=== PATIENT | male | born 1980 | race Caucasian/White ===

== ENCOUNTER 2018-05-04 16:56 | Emergency (ER) | payer BC ==
[~2018-05-04] VITALS: Ht 177.8 cm; Wt 133.0 kg
[2018-05-04] MEDS ORDERED: MORPHINE SULFATE 4 MG/ML CPJ (NOT FOR IM USE) IV ONE (17:30)
[2018-05-04] MEDS ORDERED: AMOXICILLIN/POTASSIUM CLAVULANATE 875/125MG TAB PO ONE (17:30)
[2018-05-04] MEDS ORDERED: ONDANSETRON HCL 4MG/2ML INJ IV ONE (17:30)
[2018-05-04] MEDS ORDERED: KETOROLAC 60MG/2ML VIAL IM ONE (17:30)
[2018-05-04] MEDS ORDERED: DEXAMETHASONE 10 MG/ML VIAL IM ONE (17:30)
[2018-05-04] MEDS ORDERED: SODIUM CHLORIDE 0.9% 1,000 ML IV ONE (17:30)
[2018-05-04] MEDS ORDERED: LIDOCAINE HCL/EPINEPHRINE 1%-EPI 1:100,000 50 ML VIAL INFIL ONE (17:45)
[2018-05-04] MEDS: TETRACAINE/BENZOCAINE/BUTAMBEN 20 GM SPRAY MM NR ×2 (18:30→19:14)
[2018-05-04 22:07] VITALS: BP 144/90
== END 2018-05-04 22:15 | disposition home or self-care (01) ==
LOC: ER 17:40
DX: J36 Peritonsillar abscess (principal); R03.0 Elevated blood-pressure reading, without diagnosis of hypertension; R00.0 Tachycardia, unspecified
CPT/HCPCS: 82962; 96372; 96374; 96375; 99284; J1100; J1885; J2270; J2405; J3490; J7030

== ENCOUNTER 2021-01-11 17:27 | Emergency (ER) | payer SELFPAY ==
[~2021-01-11] VITALS: Ht 180.3 cm; Wt 100.0 kg
[~2021-01-11 17:27] MED LIST: LISI20TA31 PO; METF-416 PO
[2021-01-11 22:46] LABS: BASOPHILS % 0.3 % (0.0-2.0); EOSINOPHILS % 0.8 % (0.0-5.0); HEMATOCRIT. 41.6 % (42.0-52.0); HEMOGLOBIN. 14.4 g/dL (14.0-18.0); LYMPHOCYTES % 30.7 % (20.0-50.0); MEAN CORPUSCULAR HEMOGLOBIN 30.1 pg (28.0-32.0); MEAN PLATELET VOLUME 7.8 fl (7.4-10.4); MONOCYTES % 7.4 % (2.0-8.0); NEUTROPHILS % 60.8 % (40.0-76.0); PLATELET 191 x1000/uL (130-400); RED BLOOD CELL COUNT 4.78 mill/uL (4.7-6.1); RED CELL DISTRIBUTION WIDTH 13.2 % (11.6-14.6)
[2021-01-11 22:53] LABS: CHLORIDE 107 mEq/L (98-107)
[2021-01-12 01:00] VITALS: BP 129/79
== END 2021-01-12 01:25 | disposition home or self-care (01) ==
LOC: ER 17:31
DX: R07.89 Other chest pain (principal); R05 Cough; F41.9 Anxiety disorder, unspecified; I10 Essential (primary) hypertension
CPT/HCPCS: 36415; 71045; 80053; 84484; 85025; 93005; 99285

== ENCOUNTER 2021-02-25 18:40 | Emergency (ER) | payer BC ==
[~2021-02-25] VITALS: Ht 180.3 cm; Wt 95.0 kg
[~2021-02-25 18:40] MED LIST changes: +AMOX-424 MT
[2021-02-25] MEDS ORDERED: KETOROLAC 30MG/ML VIAL IV STA (23:38)
[2021-02-25] MEDS ORDERED: SODIUM CHLORIDE 0.9% 1,000 ML IV ONE (23:45)
[2021-02-26 00:19] LABS: BASOPHILS % 0.5 % (0.0-2.0); EOSINOPHILS % 1.8 % (0.0-5.0); HEMATOCRIT. 40.1 % (42.0-52.0); HEMOGLOBIN. 13.8 g/dL (14.0-18.0); LYMPHOCYTES % 49.1 % (20.0-50.0); MEAN CORPUSCULAR HEMOGLOBIN 29.9 pg (28.0-32.0); MEAN CORPUSCULAR VOLUME 87.1 fL (80.0-94.0); MONOCYTES % 9.4 % (2.0-8.0); NEUTROPHILS % 39.2 % (40.0-76.0); PLATELET 146 x1000/uL (130-400); RED BLOOD CELL COUNT 4.61 mill/uL (4.7-6.1); RED CELL DISTRIBUTION WIDTH 13.6 % (11.6-14.6)
[2021-02-26 00:25] LABS: CHLORIDE 107 mEq/L (98-107)
[2021-02-26 02:16] LABS: CLARITY URINE CLEAR (CLEAR); COLOR URINE YELLOW (YELLOW); KETONES URINE 1+ (NEGATIVE); LEUKOCYTE ESTERASE URINE NEGATIVE (NEGATIVE); NITRITE URINE NEGATIVE (NEGATIVE); OCCULT BLOOD URINE NEGATIVE (NEGATIVE); PH URINE 6.5 (4.5-8.0); PROTEIN URINE NEGATIVE (NEGATIVE); SPECIFIC GRAVITY URINE 1.019 (1.005-1.030); UROBILINOGEN URINE 0.2 E.U./dL (0.2-1.0)
[2021-02-26] MEDS ORDERED: IBUP-2029 MT (04:08)
[2021-02-26] MEDS ORDERED: DOCU-138 MT (04:08)
[2021-02-26 04:20] VITALS: BP 148/91
== END 2021-02-26 04:22 | disposition home or self-care (01) ==
LOC: ER 18:40
DX: R10.9 Unspecified abdominal pain (principal); F41.9 Anxiety disorder, unspecified; E11.9 Type 2 diabetes mellitus without complications; I10 Essential (primary) hypertension
CPT/HCPCS: 36415; 74177; 80053; 81003; 83605; 83690; 85025; 93005; 96361; 96374; 99285; J1885; J7030

== ENCOUNTER 2021-09-05 03:26 | Emergency (ER) | payer BC ==
[~2021-09-05] VITALS: Ht 180.3 cm; Wt 98.0 kg
[~2021-09-05 03:26] MED LIST changes: +DOCU-138 MT; +IBUP-2029 MT
[2021-09-05] MEDS ORDERED: ONDANSETRON 4MG ODT PO STA (03:36)
[2021-09-05] MEDS ORDERED: MAGNESIUM/ALUMINUM HYDROXIDE/SIMETHICONE 30ML UDC PO ONE (03:45)
[2021-09-05] MEDS ORDERED: FAMOTIDINE 20MG TABLET PO ONE (03:45)
[2021-09-05 04:41] LABS: BASOPHILS % 0.2 % (0.0-2.0); EOSINOPHILS % 0.7 % (0.0-5.0); HEMATOCRIT. 44.6 % (42.0-52.0); LYMPHOCYTES % 10.4 % (20.0-50.0); MEAN CORPUSCULAR HEMOGLOBIN 29.4 pg (28.0-32.0); MEAN CORPUSCULAR VOLUME 87.3 fL (80.0-94.0); MEAN PLATELET VOLUME 7.6 fl (7.4-10.4); MONOCYTES % 5.9 % (2.0-8.0); NEUTROPHILS % 82.8 % (40.0-76.0); PLATELET 195 x1000/uL (130-400); RED BLOOD CELL COUNT 5.11 mill/uL (4.7-6.1)
[2021-09-05 04:45] LABS: CHLORIDE 106 mEq/L (98-107); CLARITY URINE CLEAR (CLEAR); COLOR URINE YELLOW (YELLOW); KETONES URINE NEGATIVE (NEGATIVE); LEUKOCYTE ESTERASE URINE NEGATIVE (NEGATIVE); NITRITE URINE NEGATIVE (NEGATIVE); OCCULT BLOOD URINE NEGATIVE (NEGATIVE); PROTEIN URINE NEGATIVE (NEGATIVE); SPECIFIC GRAVITY URINE 1.026 (1.005-1.030); UROBILINOGEN URINE 0.2 E.U./dL (0.2-1.0)
[2021-09-05] MEDS ORDERED: SODIUM CHLORIDE 0.9% 1,000 ML IV ONE (05:00)
[2021-09-05] MEDS ORDERED: FAMO-135 MT (05:41)
[2021-09-05 07:05] VITALS: BP 123/75
== END 2021-09-05 07:09 | disposition home or self-care (01) ==
LOC: ER 03:26
DX: R10.13 Epigastric pain (principal); I10 Essential (primary) hypertension; E11.9 Type 2 diabetes mellitus without complications; Z91.14 Patient's other noncompliance with medication regimen
CPT/HCPCS: 36415; 74176; 80053; 81003; 83690; 85025; 99284; J7030; Q0162

== ENCOUNTER 2022-03-24 19:09 | Emergency (ER) | payer SELFPAY ==
[~2022-03-24] VITALS: Ht 177.8 cm; Wt 104.0 kg
[~2022-03-24 19:09] MED LIST changes: +FAMO-135 MT
[2022-03-24 19:19] VITALS: BP 155/108
[2022-03-24] MEDS ORDERED: IBUPROFEN 400MG TABLET PO ONE (21:15)
[2022-03-24 23:05] LABS: CHLORIDE 104 mEq/L (98-107)
[2022-03-24] MEDS ORDERED: LIDO700A30 TP (23:33)
[2022-03-24] MEDS ORDERED: IBUP-2028 MT (23:33)
== END 2022-03-24 23:43 | disposition home or self-care (01) ==
LOC: ER 19:09
DX: M54.9 Dorsalgia, unspecified (principal); I10 Essential (primary) hypertension
CPT/HCPCS: 36415; 80048; 99283

== ENCOUNTER 2022-03-27 15:02 | Emergency (ER) | payer MEDICAID ==
[~2022-03-27] VITALS: Ht 175.3 cm; Wt 89.0 kg
[~2022-03-27 15:02] MED LIST changes: +IBUP-2028 MT; +LIDO700A30 TP
[2022-03-27 16:31] LABS: BASOPHILS % 0.3 % (0.0-2.0); EOSINOPHILS % 0.3 % (0.0-5.0); HEMATOCRIT. 44.4 % (42.0-52.0); HEMOGLOBIN. 15.1 g/dL (14.0-18.0); LYMPHOCYTES % 21.3 % (20.0-50.0); MEAN CORPUSCULAR HEMOGLOBIN 30.3 pg (28.0-32.0); MEAN CORPUSCULAR VOLUME 88.8 fL (80.0-94.0); MEAN PLATELET VOLUME 7.1 fl (7.4-10.4); MONOCYTES % 6.5 % (2.0-8.0); NEUTROPHILS % 71.6 % (40.0-76.0); PLATELET 203 x1000/uL (130-400)
[2022-03-27 16:35] LABS: CHLORIDE 104 mEq/L (98-107)
[2022-03-27 16:44] LABS: PROTHROMBIN TIME 10.9 sec (9.6-11.0)
[2022-03-27 16:46] LABS: ETHANOL BLOOD < 10 mg/dL
[2022-03-27 16:50] LABS: CLARITY URINE CLEAR (CLEAR); COLOR URINE YELLOW (YELLOW); KETONES URINE 1+ (NEGATIVE); LEUKOCYTE ESTERASE URINE NEGATIVE (NEGATIVE); NITRITE URINE NEGATIVE (NEGATIVE); OCCULT BLOOD URINE NEGATIVE (NEGATIVE); PH URINE 5.5 (4.5-8.0); PROTEIN URINE TRACE (NEGATIVE); SPECIFIC GRAVITY URINE 1.027 (1.005-1.030)
[2022-03-27 17:01] LABS: *AMPHETAMINES SCREEN URINE NEGATIVE (NEGATIVE); *BARBITURATES SCREEN URINE NEGATIVE (NEGATIVE); *BENZODIAZEPINES SCREEN URINE NEGATIVE (NEGATIVE); *COCAINE SCREEN URINE NEGATIVE (NEGATIVE); CANNABINOID URINE SCREEN NEGATIVE (NEGATIVE); METHADONE URINE SCREEN NEGATIVE (NEGATIVE); OPIATES URINE SCREEN NEGATIVE (NEGATIVE); PHENCYCLIDINE URINE SCREEN NEGATIVE (NEGATIVE)
[2022-03-27] MEDS ORDERED: KETOROLAC 15MG/ML VIAL IV NR (18:00)
[2022-03-27] MEDS ORDERED: IBUP-2029 MT (18:10)
[2022-03-27] MEDS ORDERED: IBUPROFEN 600MG TABLET PO ONE (18:15)
[2022-03-27] MEDS ORDERED: LISINOPRIL 20MG TABLET PO ONE (18:15)
[2022-03-27 19:40] VITALS: BP 159/92
== END 2022-03-27 19:46 | disposition home or self-care (01) ==
LOC: ER 15:02 → EDBEDREQ 16:48 → EDBEDREQTM 19:41 → EDBEDREQ 19:41 → ER 19:46 → CANBEDREQ 20:00
DX: R07.89 Other chest pain (principal); I10 Essential (primary) hypertension; E11.9 Type 2 diabetes mellitus without complications; Z79.899 Other long term (current) drug therapy
CPT/HCPCS: 36415; 71045; 76705; 80053; 80305; 80320; 81003; 83880; 84484; 85025; 99285; G0480

== ENCOUNTER 2022-11-18 13:11 | Emergency (ER) | payer MEDICAID ==
[~2022-11-18] VITALS: Ht 177.8 cm; Wt 107.0 kg
[2022-11-18] MEDS ORDERED: ACETAMINOPHEN 325MG TABLET PO STA (13:41)
[2022-11-18] MEDS ORDERED: SODIUM CHLORIDE 0.9% 1,000 ML IV ONE (13:45)
[2022-11-18] MEDS ORDERED: METOCLOPRAMIDE HCL 10MG/2ML VIAL IV ONE (13:45)
[2022-11-18] MEDS ORDERED: DIPHENHYDRAMINE 50MG/ML VIAL IV ONE (13:45)
[2022-11-18 14:13] LABS: BASOPHILS % 0.3 % (0.0-2.0); EOSINOPHILS % 1.1 % (0.0-5.0); HEMATOCRIT. 44.4 % (42.0-52.0); HEMOGLOBIN. 15.3 g/dL (14.0-18.0); LYMPHOCYTES % 28.2 % (20.0-50.0); MEAN CORPUSCULAR HEMOGLOBIN 30.3 pg (28.0-32.0); MEAN CORPUSCULAR VOLUME 87.8 fL (80.0-94.0); MEAN PLATELET VOLUME 7.3 fl (7.4-10.4); MONOCYTES % 8.1 % (2.0-8.0); NEUTROPHILS % 62.3 % (40.0-76.0); PLATELET 211 x1000/uL (130-400); RED BLOOD CELL COUNT 5.05 mill/uL (4.7-6.1)
[2022-11-18 14:21] LABS: PROTHROMBIN TIME 11.1 sec (9.6-11.0)
[2022-11-18 14:25] LABS: CHLORIDE 106 mEq/L (98-107)
[2022-11-18] MEDS ORDERED: ACET-2708 MT (15:15)
[2022-11-18] MEDS ORDERED: METO-293 MT (15:15)
[2022-11-18 17:03] VITALS: BP 151/106
== END 2022-11-18 17:06 | disposition home or self-care (01) ==
LOC: ER 13:11
DX: G44.209 Tension-type headache, unspecified, not intractable (principal); I10 Essential (primary) hypertension; E11.9 Type 2 diabetes mellitus without complications; Z79.84 Long term (current) use of oral hypoglycemic drugs; Z79.899 Other long term (current) drug therapy
CPT/HCPCS: 36415; 70450; 80053; 82962; 85025; 85610; 96361; 96374; 96375; 99285; J1200; J2765; J7030; Z7610

== ENCOUNTER 2023-02-25 10:31 | Emergency (ER) | payer SELFPAY ==
[~2023-02-25] VITALS: Ht 177.8 cm; Wt 118.0 kg
[~2023-02-25 10:31] MED LIST changes: +ACET-2708 MT; +METO-293 MT
[2023-02-25 10:55] VITALS: O2SAT 96
[2023-02-25 12:09] LABS: BASOPHILS % 0.3 % (0.0-2.0); EOSINOPHILS % 0.6 % (0.0-5.0); HEMATOCRIT. 45.1 % (42.0-52.0); HEMOGLOBIN. 15.8 g/dL (14.0-18.0); LYMPHOCYTES % 22.7 % (20.0-50.0); MEAN CORPUSCULAR HEMOGLOBIN 30.3 pg (28.0-32.0); MEAN CORPUSCULAR VOLUME 86.6 fL (80.0-94.0); MEAN PLATELET VOLUME 7.2 fl (7.4-10.4); MONOCYTES % 8.1 % (2.0-8.0); NEUTROPHILS % 68.3 % (40.0-76.0); PLATELET 216 x1000/uL (130-400); RED BLOOD CELL COUNT 5.22 mill/uL (4.7-6.1); RED CELL DISTRIBUTION WIDTH 13.9 % (11.6-14.6); WHITE BLOOD COUNT 7.4 x1000/uL (4.5-11.0)
[2023-02-25 12:15] LABS: CLARITY URINE CLEAR (CLEAR); COLOR URINE YELLOW (YELLOW); GLUCOSE URINE NEGATIVE (NEGATIVE); KETONES URINE NEGATIVE (NEGATIVE); LEUKOCYTE ESTERASE URINE NEGATIVE (NEGATIVE); NITRITE URINE NEGATIVE (NEGATIVE); OCCULT BLOOD URINE NEGATIVE (NEGATIVE); PH URINE 6.5 (4.5-8.0); PROTEIN URINE TRACE (NEGATIVE); SPECIFIC GRAVITY URINE 1.022 (1.005-1.030); UROBILINOGEN URINE 0.2 E.U./dL (0.2-1.0)
[2023-02-25 12:18] LABS: BACTERIA URINE NONE SEEN; RBC URINE NONE SEEN /hpf (0-2); WBC URINE NONE SEEN /hpf (0-2); YEAST URINE NONE SEEN
[2023-02-25 12:18] LABS: CHLORIDE 106 mEq/L (98-107); INDEX HEMOLYSI 1 (1-3); INDEX ICTERIC 1 (1-4); INDEX LIPEMIC 1 (1-3); POTASSIUM 3.4 mEq/L (3.5-5.1); SODIUM 135 mEq/L (136-145)
[2023-02-25 12:25] LABS: ALANINE AMINOTRANSFERASE 46 IU/L (13-61); ALBUMIN 4.1 g/dL (3.4-5.0); ASPARTATE AMINOTRANSFERASE 28 IU/L (15-37); BILIRUBIN TOTAL 0.6 mg/dL (0.1-1.0); CALCIUM 8.9 mg/dL (8.5-10.1); CARBON DIOXIDE 29 mEq/L (21-32); CREATININE 0.8 mg/dL (0.6-1.3); GLUCOSE 115 mg/dL (70-105); PROTEIN TOTAL 8.5 g/dL (6.0-8.3); UREA NITROGEN BLOOD 13 mg/dL (7-21)
[2023-02-25 12:41] LABS: SQUAMOUS EPITHELIAL CELL URINE RARE /lpf (RARE/1+)
[2023-02-25 13:36] VITALS: BP 152/98; PULSE 88; RESP 18; TEMP 98.7
== END 2023-02-25 13:38 | disposition home or self-care (01) ==
LOC: ER 10:31
DX: R10.9 Unspecified abdominal pain (principal); M79.10 Myalgia, unspecified site; N20.0 Calculus of kidney; E11.9 Type 2 diabetes mellitus without complications; I10 Essential (primary) hypertension; Z79.899 Other long term (current) drug therapy
CPT/HCPCS: 80053; 81003; 85025; 36415; 74176; 99284; Z7610

== ENCOUNTER 2023-11-15 03:53 | Emergency (ER) | payer SELFPAY ==
[~2023-11-15] VITALS: Ht 180.3 cm; Wt 127.0 kg
[2023-11-15 04:03] VITALS: O2SAT 94
[2023-11-15 06:20] LABS: BASOPHILS % 0.5 % (0.0-2.0); HEMATOCRIT. 46.5 % (42.0-52.0); HEMOGLOBIN. 15.8 g/dL (14.0-18.0); MEAN CORPUSCULAR HEMOGLOBIN 29.9 pg (28.0-32.0); MEAN CORPUSCULAR HGB CONC 33.9 g/dL (31.0-37.0); MEAN CORPUSCULAR VOLUME 88.4 fL (80.0-94.0); MEAN PLATELET VOLUME 7.8 fl (7.4-10.4); MONOCYTES % 7.8 % (2.0-8.0); NEUTROPHILS % 65.7 % (40.0-76.0); PLATELET 211 x1000/uL (130-400); RED BLOOD CELL COUNT 5.26 mill/uL (4.7-6.1); RED CELL DISTRIBUTION WIDTH 13.9 % (11.6-14.6)
[2023-11-15 06:25] LABS: BG BASE EXCESS 1.2 mmol/L (-2.0-2.0); BG CARBOXYHEMOGLOBIN 0.6 % (0.5-1.5); BG DEOXYHEMOGLOBIN 6.6 % (0.0-5.0); BG HCO3 ACT 25.3 mmol/L (22.0-26.0); BG METHEMOGLOBIN 0.5 % (0.0-1.5); BG OXYGEN SATURATION 93.3 % (92.0-98.5); BG OXYHEMOGLOBIN 92.3 % (94.0-97.0); BG PCO2 38.8 mmHg (35.0-45.0); BG PH 7.432 (7.350-7.450); BG PO2 65.6 mmHg (75.0-100.0); BG SAMPLE SITE RIGHT RADIAL; BG TOTAL HEMOGLOBIN 17.1 g/dL (12.0-18.0); BG VENT MODE ROOM AIR
[2023-11-15 06:26] LABS: CHLORIDE 102 mEq/L (98-107); POTASSIUM 3.8 mEq/L (3.5-5.1); SODIUM 137 mEq/L (136-145)
[2023-11-15 06:27] LABS: CARBON DIOXIDE 28 mEq/L (21-32)
[2023-11-15 06:32] LABS: GLUCOSE 247 mg/dL (70-105); UREA NITROGEN BLOOD 12 mg/dL (9-23)
[2023-11-15 06:33] LABS: TROPONIN I HIGH SENSITIVITY 7 ng/L (3.0-53)
[2023-11-15 06:34] LABS: ALANINE AMINOTRANSFERASE 55 IU/L (10-49); ALBUMIN 4.7 g/dL (3.2-4.8); ASPARTATE AMINOTRANSFERASE 37 IU/L (<34)
[2023-11-15 06:35] LABS: BILIRUBIN TOTAL 0.7 mg/dL (0.1-1.0)
[2023-11-15 06:36] LABS: BETA HYDROXYBUTYRATE 0.1 mMol/L (0.0-0.3)
[2023-11-15] MEDS: SODIUM CHLORIDE 0.9% 1,000 ML IV ONE (06:39)
[2023-11-15 07:09] VITALS: BP 175/115; PULSE 97; RESP 15; TEMP 98.2
[2023-11-15] MEDS ORDERED: METF-414 MT (09:03)
== END 2023-11-15 07:13 | disposition home or self-care (01) ==
LOC: ER 03:53
DX: E11.65 Type 2 diabetes mellitus with hyperglycemia (principal)
CPT/HCPCS: 99285; 96360; 71045; 80053; 82010; 82962; 85025; 84484; 36415; 82805; 82375; 93005; 36600; J7030

== ENCOUNTER 2023-11-15 08:21 | Emergency (ER) | payer SELFPAY ==
[~2023-11-15] VITALS: Ht 177.8 cm; Wt 127.0 kg
[2023-11-15 08:23] VITALS: BP 168/108; PULSE 98; RESP 18; TEMP 98.6; O2SAT 100
[2023-11-15] MEDS ORDERED: METF-414 MT (09:03)
== END 2023-11-15 09:23 | disposition home or self-care (01) ==
LOC: ER 08:21
DX: E11.65 Type 2 diabetes mellitus with hyperglycemia (principal)
CPT/HCPCS: 99281

== ENCOUNTER 2023-11-15 16:43 | Emergency (ER) | payer SELFPAY ==
[~2023-11-15] VITALS: Ht 180.3 cm; Wt 127.0 kg
[~2023-11-15 16:43] MED LIST changes: +METF-414 MT
[2023-11-15 16:48] VITALS: O2SAT 100
[2023-11-15 18:15] VITALS: BP 148/108; PULSE 94; RESP 20; TEMP 98.6
== END 2023-11-15 18:23 | disposition home or self-care (01) ==
LOC: ER 16:43
DX: E11.65 Type 2 diabetes mellitus with hyperglycemia (principal); Z79.899 Other long term (current) drug therapy
CPT/HCPCS: 82962; 99281; 99282

== ENCOUNTER 2024-01-07 00:25 | Emergency (ER) | payer SELFPAY ==
[~2024-01-07] VITALS: Ht 177.8 cm; Wt 113.0 kg
[2024-01-07 00:36] VITALS: BP 138/95; RESP 18; TEMP 97.9; O2SAT 100
[2024-01-07 00:41] VITALS: PULSE 99
[2024-01-07 01:03] LABS: BASOPHILS % 0.3 % (0.0-2.0); EOSINOPHILS % 0.9 % (0.0-5.0); HEMATOCRIT. 42.7 % (42.0-52.0); HEMOGLOBIN. 14.3 g/dL (14.0-18.0); LYMPHOCYTES % 24.3 % (20.0-50.0); MEAN CORPUSCULAR HEMOGLOBIN 29.6 pg (28.0-32.0); MEAN CORPUSCULAR HGB CONC 33.6 g/dL (31.0-37.0); MEAN CORPUSCULAR VOLUME 88.3 fL (80.0-94.0); MEAN PLATELET VOLUME 7.6 fl (7.4-10.4); MONOCYTES % 9.9 % (2.0-8.0); NEUTROPHILS % 64.6 % (40.0-76.0); PLATELET 205 x1000/uL (130-400); RED BLOOD CELL COUNT 4.84 mill/uL (4.7-6.1); WHITE BLOOD COUNT 10.2 x1000/uL (4.5-11.0)
[2024-01-07 01:12] LABS: CHLORIDE 104 mEq/L (98-107); POTASSIUM 3.8 mEq/L (3.5-5.1); SODIUM 139 mEq/L (136-145)
[2024-01-07 01:13] LABS: CALCIUM 9.8 mg/dL (8.7-10.4); CARBON DIOXIDE 27 mEq/L (21-32)
[2024-01-07 01:18] LABS: CREATININE 0.8 mg/dL (0.6-1.3); GLUCOSE 91 mg/dL (70-105); UREA NITROGEN BLOOD 11 mg/dL (9-23)
[2024-01-07 01:19] LABS: ALANINE AMINOTRANSFERASE 21 IU/L (10-49)
[2024-01-07 01:20] LABS: ALBUMIN 4.9 g/dL (3.2-4.8); ASPARTATE AMINOTRANSFERASE 23 IU/L (<34); BILIRUBIN DIRECT 0.5 mg/dL (<=3.0); BILIRUBIN TOTAL 1.1 mg/dL (0.1-1.0); PROTEIN TOTAL 7.8 g/dL (6.0-8.3)
[2024-01-07] MEDS: KETOROLAC 30MG/ML VIAL IM ONE (08:12)
[2024-01-07] MEDS ORDERED: AMOX1TAB16 MT (09:08)
[2024-01-07] MEDS ORDERED: METR-167 MT (09:08)
[2024-01-07 09:10] LABS: CLARITY URINE CLEAR (CLEAR); COLOR URINE YELLOW (YELLOW); GLUCOSE URINE NEGATIVE (NEGATIVE); KETONES URINE 3+ (NEGATIVE); LEUKOCYTE ESTERASE URINE NEGATIVE (NEGATIVE); NITRITE URINE NEGATIVE (NEGATIVE); OCCULT BLOOD URINE NEGATIVE (NEGATIVE); PH URINE 5.5 (4.5-8.0); PROTEIN URINE NEGATIVE (NEGATIVE); SPECIFIC GRAVITY URINE 1.011 (1.005-1.030); UROBILINOGEN URINE 0.2 E.U./dL (0.2-1.0)
== END 2024-01-07 09:16 | disposition home or self-care (01) ==
LOC: ER 00:25
DX: K57.92 Diverticulitis of intestine, part unspecified, without perforation or abscess without bleeding (principal); E11.9 Type 2 diabetes mellitus without complications; I10 Essential (primary) hypertension; Z79.899 Other long term (current) drug therapy
CPT/HCPCS: 99285; 74176; 80053; 81003; 85025; 36415; 96372; 80076; J1885

== ENCOUNTER 2024-11-24 16:22 | Emergency (ER) | payer SELFPAY ==
[~2024-11-24] VITALS: Ht 180.3 cm; Wt 118.0 kg
[~2024-11-24 16:22] MED LIST changes: +AMOX1TAB16 MT; +METR-167 MT
[2024-11-24 16:36] VITALS: O2SAT 100
[2024-11-24 17:12] LABS: BASOPHILS % 0.3 % (0.0-2.0); EOSINOPHILS % 0.8 % (0.0-5.0); HEMATOCRIT. 44.7 % (42.0-52.0); HEMOGLOBIN. 15.1 g/dL (14.0-18.0); LYMPHOCYTES % 32.5 % (20.0-50.0); MEAN CORPUSCULAR HEMOGLOBIN 29.3 pg (28.0-32.0); MEAN CORPUSCULAR HGB CONC 33.8 g/dL (31.0-37.0); MEAN CORPUSCULAR VOLUME 86.6 fL (80.0-94.0); MEAN PLATELET VOLUME 7.3 fl (7.4-10.4); MONOCYTES % 7.8 % (2.0-8.0); NEUTROPHILS % 58.6 % (40.0-76.0); PLATELET 233 x1000/uL (130-400); RED BLOOD CELL COUNT 5.16 mill/uL (4.7-6.1); RED CELL DISTRIBUTION WIDTH 13.7 % (11.6-14.6); WHITE BLOOD COUNT 9.1 x1000/uL (4.5-11.0)
[2024-11-24 17:20] LABS: CHLORIDE 102 mEq/L (98-107); POTASSIUM 3.3 mEq/L (3.5-5.1); SODIUM 143 mEq/L (136-145)
[2024-11-24 17:21] LABS: CALCIUM 9.6 mg/dL (8.7-10.4); CARBON DIOXIDE 31 mEq/L (21-32)
[2024-11-24 17:26] LABS: CREATININE 1.1 mg/dL (0.6-1.3); GLUCOSE 114 mg/dL (70-105); UREA NITROGEN BLOOD 17 mg/dL (9-23)
[2024-11-24 17:38] LABS: PROTHROMBIN TIME 10.7 sec (9.6-11.0)
[2024-11-24 20:20] LABS: CLARITY URINE CLEAR (CLEAR); COLOR URINE YELLOW (YELLOW); GLUCOSE URINE NEGATIVE (NEGATIVE); KETONES URINE 2+ (NEGATIVE); LEUKOCYTE ESTERASE URINE NEGATIVE (NEGATIVE); NITRITE URINE NEGATIVE (NEGATIVE); OCCULT BLOOD URINE NEGATIVE (NEGATIVE); PH URINE 6.5 (4.5-8.0); PROTEIN URINE NEGATIVE (NEGATIVE); SPECIFIC GRAVITY URINE 1.018 (1.005-1.030)
[2024-11-24] MEDS: PANTOPRAZOLE 40MG DR TABLET PO ONE (20:30)
[2024-11-24] MEDS: MAGNESIUM/ALUMINUM HYDROXIDE/SIMETHICONE 30ML UDC PO STA (20:30)
[2024-11-24] MEDS: POTASSIUM CHLORIDE 20MEQ/PACKET PO ONE (20:31)
[2024-11-24 20:43] LABS: ALANINE AMINOTRANSFERASE 27 IU/L (10-49); ALBUMIN 4.8 g/dL (3.2-4.8); ASPARTATE AMINOTRANSFERASE 29 IU/L (<34); BILIRUBIN DIRECT 0.2 mg/dL (<=3.0); BILIRUBIN TOTAL 0.6 mg/dL (0.1-1.0)
[2024-11-24] MEDS: VISCOUS LIDOCAINE 2% 15 ML UDC PO STA (20:49)
[2024-11-24] MEDS ORDERED: TOPUD PO (21:20)
[2024-11-24] MEDS ORDERED: OMEP40CA20 MT (21:20)
[2024-11-24] MEDS ORDERED: MAG-55 MT (21:20)
[2024-11-24 21:33] VITALS: BP 140/98; PULSE 81; RESP 19; TEMP 36.7; O2SAT 100
== END 2024-11-24 21:55 | disposition home or self-care (01) ==
LOC: ER 16:22
DX: K29.70 Gastritis, unspecified, without bleeding (principal); E11.9 Type 2 diabetes mellitus without complications; E78.00 Pure hypercholesterolemia, unspecified; I10 Essential (primary) hypertension; Z79.899 Other long term (current) drug therapy
CPT/HCPCS: 36415; 74176; 80048; 80076; 81003; 85025; 99284